=== PATIENT | male | born 1990 | race Two or more races ===

== ENCOUNTER 2020-10-20 09:41 | Emergency (ER) | payer MEDICAID, OTHER ==
[~2020-10-20] VITALS: Ht 182.9 cm; Wt 86.2 kg
[2020-10-20 10:36] VITALS: BP 148/89
[2020-10-20] MEDS ORDERED: KETOROLAC TROMETH 60MG/2ML VIAL IM ONE (11:00)
[2020-10-20] MEDS ORDERED: IBUPROFEN 800 MG TAB PO ONE (11:45)
== END 2020-10-20 11:55 | disposition home or self-care (01) ==
LOC: ER 09:41
DX: G43.909 Migraine, unspecified, not intractable, without status migrainosus (principal); F17.210 Nicotine dependence, cigarettes, uncomplicated; I10 Essential (primary) hypertension
CPT/HCPCS: 70450; J1885